=== PATIENT | male | born 1985 | race Caucasian/White ===

== ENCOUNTER 2022-05-05 16:33 | Emergency (ER) | payer OTHER ==
[2022-05-05 17:27] VITALS: O2SAT 97
[2022-05-05] MEDS ORDERED: XYLOCAINE 1% HCL 20 ML MDV ONE (17:52)
[2022-05-05] MEDS ORDERED: Adacel Vial IM ONE ×2 (18:05→18:18)
--- NOTE | 2022-05-05 18:13 | ERPHSYRPT ---
- History of Present Illness Time Seen by Provider: 05/05/22 17:35 Source: patient Exam Limitations: no limitations Patient Subjective Stated Complaint: Pt to ER with complaints of laceration on left 2nd digit. pt states he was working on a car today and got his finger stuck on a transmission. pt denies pain. Triage Nursing Assessment: pt to ER with complaints of left 2nd digit laceration. pt ambulatory. skin pwd. denies pain currently. bleeding controlled. arrives with bandaid on. Physician History: Left index finger has a 1 cm laceration over the proximal PIP joint sole lacerations and abrasions over the middle and ring finger of the left hand. No other injuries this occurred just prior to arrival and he does not remember his last tetanus. Occurred: just prior to arrival Method of Injury: incised Severity of Pain-Max: mild Severity of Pain-Current: mild Extremities Pain Location: 2nd finger: left (1 cm laceration, over the dorsum of the DIP joint), 3rd finger: left (Abrasion), 4th finger: left (Abrasion) Modifying Factors: Improves With: nothing Associated Symptoms: none Allergies/Adverse Reactions: No Known Drug Allergies Allergy (Unverified 05/05/22 17:27) Home Medications: Gabapentin 300 mg PO PRN 05/05/22 [History] Hx Tetanus, Diphtheria Vaccination/Date Given: No Hx Influenza Vaccination/Date Given: No Hx Pneumococcal Vaccination/Date Given: No Travel Risk - International Travel Have you traveled outside of the country in past 3 weeks: No - Coronavirus Screening Are you exhibiting any of the following symptoms?: No Close contact with a COVID-19 positive Pt in past 14-21 Days: No - Vaccine Status Have you recieved a Covid-19 vaccination: No - Review of Systems Constitutional: No Fever, No Chills Eyes: No Symptoms Ears, Nose, & Throat: No Symptoms Respiratory: No Cough, No Dyspnea Cardiac: No Chest Pain, No Edema, No Syncope Abdominal/Gastrointestinal: No Abdominal Pain, No Nausea, No Vomiting, No Diarrhea Genitourinary Symptoms: No Dysuria Musculoskeletal: No Back Pain, No Neck Pain Skin: No Rash Neurological: No Dizziness, No Focal Weakness, No Sensory Changes Psychological: No Symptoms Endocrine: No Symptoms All Other Systems: Reviewed and Negative - Past Medical History Neurological History: No Pertinent History Cardiac History: No Pertinent History Respiratory History: No Pertinent History Endocrine Medical History: No Pertinent History Musculoskeletal History: No Pertinent History Other Medical History: NOTES NUMBNESS IN B FEET WHEN BACK PAIN FLARES. - Past Surgical History Past Surgical History: Yes Neuro Surgical History: Other Musculoskeletal: Orthopedic Surgery Other Surgical History: brain surgery - Social History Smoking Status: Current every day smoker How long have you smoked: 20 Exposure to second hand smoke: Yes Drug Use: none Patient Lives Alone: Yes - Nursing Vital Signs Nursing Vital Signs: Initial Vital Signs Temperature 98.0 F 05/05/22 17:18 Pulse Rate 77 05/05/22 17:18 Respiratory Rate 17 05/05/22 17:18 Blood Pressure 129/83 05/05/22 17:18 O2 Sat by Pulse Oximetry 97 05/05/22 17:18 Pain Scale Pain Intensity 0 - Physical Exam General Appearance: mild distress, alert Eyes, Ears, Nose, Throat Exam: normal ENT inspection Neck Exam: normal inspection, non-tender, supple Cardiovascular/Respiratory Exam: no respiratory distress (Airway intact) Abdominal Exam: No guarding Back Exam: normal inspection, No vertebral tenderness Shoulder Exam: normal inspection, non-tender Elbow/Forearm Exam: normal inspection, non-tender Wrist Exam: normal inspection, non-tender Hand Exam: laceration (1 cm laceration over the DIP joint dorsum of the left index finger) Neuro/Tendon Exam: normal sensation, normal motor functions Mental Status Exam: alert, oriented x 3, cooperative Skin Exam: normal color, warm, dry SpO2 Interpretation: normal SpO2: 97 O2 Delivery: Room Air Procedures - Laceration/Wound Repair Left Finger Time of Procedure: 18:11 Wound Location: Left, hand (Left index finger) Wound Length (cm): 1 Wound's Depth, Shape: superficial, linear Wound Explored: clean Irrigated: Yes Hibiclens Prep: Yes Anesthesia: 1% Lidocaine Volume Anesthetic (ccs): 2 Wound Debrided: minimal Wound Repaired With: sutures Suture Size/Type: 4-0 Number of Sutures: 2 Layer Closure?: No Sterile Dressing Applied?: Yes Splint Applied?: No Sling Applied?: No - Course Nursing assessment & vital signs reviewed: Yes Ordered Tests: Medication Summary Discontinued Medications Generic Name Dose Route Start Last Admin Trade Name Freq PRN Reason Stop Dose Admin Diphtheria/Tetanus/Acell Pertussis 0.5 ml 05/05/22 18:05 Tdap --Diph,Pertuss(Acell),Tet Vac/Pf 0.5 Ml Vial IM 05/05/22 18:06 .ONCE ONE Lidocaine HCl Confirm 05/05/22 17:52 Lidocaine Hcl 1% 20 Ml Mdv 20 Ml Ml Administered 05/05/22 17:53 Dose 1 ml .ROUTE .[employer] ONE - Progress Progress: improved - Departure Departure Disposition: Home Clinical Impression: Laceration of left index finger Condition: Stable Critical Care Time: No Referrals: CATY IQBAL [Primary Care Provider] - Follow up/PCP as directed Instructions: Wound Care (DC), Laceration Repair With Stitches (DC)
[2022-05-05] MEDS ORDERED: BACIGUENT PACKET TP ONE (18:23)
[2022-05-05] MEDS ORDERED: BACIGUENT PACKET ONE (18:24)
[2022-05-05 18:29] VITALS: BP 116/79; PULSE 72
== END 2022-05-05 18:32 | disposition home or self-care (01) ==
LOC: ED 16:33
DX: S61.211A Laceration without foreign body of left index finger without damage to nail, initial encounter (principal); W26.8XXA Contact with other sharp object(s), not elsewhere classified, initial encounter; Z79.899 Other long term (current) drug therapy; Z28.310 Unvaccinated for COVID-19; Z72.0 Tobacco use
CPT/HCPCS: 12001; 90471; 90715; 99282; A9270-GY